=== PATIENT | female | born 1990 | race Two or more races ===

== ENCOUNTER 2025-03-12 13:57 | Outpatient (CLI) | payer OTHER | END 2025-03-12 14:05 | disposition home or self-care (01) | LOC: PRENATAL 13:57 | PROVIDERS: ATTEND Obstetrics & Gynecology Maternal & Fetal Medicine | DX: O44.00 Complete placenta previa NOS or without hemorrhage, unspecified trimester (principal); O36.1999 Maternal care for other isoimmunization, unspecified trimester, other fetus; Z3A.21 21 weeks gestation of pregnancy ==

== ENCOUNTER 2025-05-27 12:35 | Outpatient (CLI) | payer OTHER | END 2025-05-27 12:36 | disposition home or self-care (01) | LOC: PRENATAL 12:35 | PROVIDERS: ATTEND Obstetrics & Gynecology Maternal & Fetal Medicine | DX: O26.849 Uterine size-date discrepancy, unspecified trimester (principal); O36.8130 Decreased fetal movements, third trimester, not applicable or unspecified; O36.1999 Maternal care for other isoimmunization, unspecified trimester, other fetus; Z3A.33 33 weeks gestation of pregnancy ==